=== PATIENT | female | born 1965 | race Caucasian/White ===

== ENCOUNTER 2023-11-11 05:45 | Emergency (ER) | payer OTHER, SELFPAY ==
[2023-11-11] VITALS (14 sets, daily range): BP systolic 104–150; BP diastolic 45–70; PULSE 72–102; RESP 11–19; TEMP 36.8–38.3; O2SAT 95–100; BMI 25.2
--- NOTE | 2023-11-11 | ECG_ITS ---
Test Reason : CHEST PAIN Blood Pressure : / mmHG Vent. Rate : 090 BPM Atrial Rate : 090 BPM P-R Int : 134 ms QRS Dur : 094 ms QT Int : 336 ms P-R-T Axes : 000 058 053 degrees QTc Int : 411 ms Normal sinus rhythm Normal ECG No previous ECGs available Referred By: Generic ED Physician Electronically Signed By:JENNY METCALF
--- NOTE | ~2023-11-11 | XR_ITS ---
EXAMINATION: XR CHEST CLINICAL INFORMATION: Chest pain COMPARISON: None available. TECHNIQUE: 4 views of the chest were obtained. Fluoroscopy was utilized. FINDINGS: No significant abnormality is noted involving the heart, lungs, mediastinum, bony thorax or soft tissues. XR/XR chest 2V IMPRESSION: Unremarkable chest examination. Electronically signed by: Lc Dsouza MD 11/11/2023 08:08 AM EDT
--- NOTE | ~2023-11-11 | CT_ITS ---
EXAMINATION: CT ABDOMEN AND PELVIS WITHOUT CONTRAST CLINICAL INFORMATION: Examination: Abdominal pain, diarrhea and vomiting. COMPARISON: None available. TECHNIQUE: Multidetector volumetric imaging was performed from the superior aspect of the liver through the pubic symphysis. Sagittal and coronal reformatted images were obtained on the technologist's workstation. This CT examination was performed using dose optimization techniques as appropriate, variously including the following: *Automated exposure control *Adjustment of mA and/or kV according to patient size (this includes techniques or standardized protocols for targeted exams where dose is matched to indication/reason for exam; i.e. extremities or head) *Use of iterative reconstruction technique DLP: 518 mGy-cm FINDINGS: LUNG BASES: The visualized lung bases are unremarkable. LIVER, GALLBLADDER, AND BILIARY TREE: The liver is normal in size, shape, and attenuation. No focal hepatic lesion or biliary ductal dilatation is present. The gallbladder is unremarkable with no evidence of radiopaque gallstones, gallbladder wall thickening, or obvious pericholecystic inflammatory changes. PANCREAS: Unremarkable. SPLEEN: Unremarkable. ADRENAL GLANDS: Unremarkable. KIDNEYS AND URETERS: The kidneys are normal in size, shape, and attenuation. No hydronephrosis, hydroureter, or calculi seen. No perinephric stranding. BLADDER: Unremarkable. GASTROINTESTINAL TRACT: There is scattered stool and gas seen throughout the colon without distention. The small bowel loops are normal caliber. Appendix is normal caliber. No free air or free fluid. ABDOMINAL WALL: Small umbilical hernia containing fat. LYMPH NODES: Normal. VASCULAR: Unremarkable. PELVIC VISCERA: The uterus is mildly prominent and retroverted. No adnexal mass or free fluid seen. OSSEOUS STRUCTURES: Unremarkable. CT/CT abdomen pelvis wo IV con IMPRESSION: No acute intraabdominal process seen. Mildly prominent retroverted uterus. Fleischner guidelines were followed. Electronically signed by: Lc Dsouza MD 11/11/2023 02:46 PM EDT
--- NOTE | 2023-11-11 06:35 | PC.NURSE ---
attempted x1 to establish a line and obtain labs, unsuccessful. pt states she is usually an ultrasound guided line.
--- NOTE | 2023-11-11 06:46 | ED.ABDPAIN ---
HPI - Abdominal Pain General Chief Complaint: Abdominal Pain Stated Complaint: vomiting and diarrhea Time Seen by Provider: 11/11/23 06:30 Source: patient, family and EMS Mode of arrival: EMS Limitations: no limitations History of Present Illness ED Provider: Zayra Pop APRN HPI narrative: 57 yo female with PMH MG on pyridostigmine followed by [facility] neurology (Liz Morelos), asthma, migraines, thyroid cancer with subsequent hypothyroidism, PCOS, exploratory laparotomy/L oophrectomy here with complaints of multiple episodes of vomiting/diarrhea since 10pm last evening with generalized abdominal pain, temp 99F. Of note, patient has had some intermittent generalized chest pain/back pain for several weeks. This may be at rest or with activity. No SOB, URI symptoms, fevers, leg swelling/leg pain with this. She did travel from [place] recently after visiting her father who was hospitalized for a UTI. Also was around a friend this week who had GI symptoms. Patient reports her primary concern in coming in today is generalized weakness. Related Data Home Medications ?Medication ?Instructions ?Recorded ?Confirmed cromolyn 5.2 mg/spray (4 %) nasal 1 spray intranasal QID 11/11/23 spray levothyroxine 100 mcg tablet 100 mcg PO DAILY@0600 11/11/23 liothyronine 5 mcg tablet 5 mcg PO BID 11/11/23 mometasone-formoterol HFA 200 1 puff inhalation BID 11/11/23 mcg-5 mcg/actuation aerosol inhaler (Dulera) prednisone 1 mg tablet 3 mg PO DAILY 11/11/23 pyridostigmine bromide 60 mg tablet 30 mg PO BEDTIME 11/11/23 pyridostigmine bromide 60 mg tablet 60 mg PO TID 11/11/23 rimegepant 75 mg disintegrating 75 mg PO DAILY PRN Migraine 11/11/23 tablet (Nurtec ODT) Headache triamcinolone acetonide 55 mcg 2 spray intranasal DAILY 11/11/23 nasal spray aerosol Allergies Allergy/AdvReac Type Severity Reaction Status Date / Time aspirin [ASA] Allergy Unknown Verified 11/11/23 06:05 Review of Systems Review of Systems Yes all other systems are reviewed and are negative Constitutional: Reports no additional constitutional complaints, Denies body ache(s), Denies chills, Reports fever(s), Denies headache(s) and Reports weakness Eyes: Reports no additional eye complaints and Denies change in vision Reports system reviewed and no additional complaints, except as documented, Denies dizziness, Denies headache(s), Denies nasal congestion, Denies nasal discharge and Denies neck pain Cardiovascular: Reports no additional cardiovascular complaints, Reports chest pain, Denies leg edema and Denies dyspnea Respiratory: Reports no additional respiratory complaints, Denies cough and Denies dyspnea Gastrointestinal: Reports no additional gastrointestinal complaints, Reports abdominal pain, Reports diarrhea, Reports nausea and Reports vomiting Genitourinary: Reports no additional female genitourinary complaints and Denies urinary incontinence Musculoskeletal: Reports no additional musculoskeletal complaints, Reports back pain, Denies arthralgias, Denies joint swelling, Denies neck pain, Denies numbness and Denies tingling Skin/Breast: Reports system reviewed and no additional complaints, except as docu and Denies rash Reports system reviewed and no additional complaints, except as documented, Denies Abnormal speech present, Denies dizziness, Denies headache(s), Denies numbness, Denies tingling and Reports weakness PMFSH Past Medical History Attestation statement: The following information was validated with the patient. Source: old records reviewed and nursing notes reviewed Social History Social History Smoked in Last 30 Days: No Use of substances other than those prescribed or required for medical reasons: No Advance Directives: No Advance Directives Information Provided: No Physical Exam ED Vital Signs: Vital Signs - 24 hr 11/11/23 06:02 11/11/23 06:14 11/11/23 07:26 Temperature Pulse Rate 97 97 83 Respiratory Rate 15 15 11 L Blood Pressure 119/70 119/70 133/67 Pulse Oximetry 97 97 98 Oxygen Delivery Method Room Air Room Air Room Air 11/11/23 07:35 11/11/23 12:00 11/11/23 13:28 Temperature 98.5 F 101.0 F H 98.9 F Pulse Rate 92 Respiratory Rate 15 Blood Pressure 122/56 L Pulse Oximetry 99 Oxygen Delivery Method Room Air 11/11/23 13:46 11/11/23 14:10 11/11/23 14:22 Temperature 98.9 F 99.1 F Pulse Rate 90 102 H Respiratory Rate 13 14 Blood Pressure 104/64 Pulse Oximetry 97 Oxygen Delivery Method Room Air Room Air 11/11/23 15:26 Temperature Pulse Rate 93 Respiratory Rate 19 Blood Pressure 109/45 L Pulse Oximetry 96 Oxygen Delivery Method Room Air BMI result Body Mass Index 25.2 Const General: cooperative, healthy appearing, comfortable and no acute distress Orientation/consciousness: patient oriented x3 Limitations: no limitations [facility] Head: Yes normal to inspection Ears: hearing grossly normal bilaterally General nose exam: Normal external nose present Face and sinus: Yes normal facial exam Mouth: Normal oral and palatal mucosa present Throat: Yes posterior oropharynx normal Eyes General: appearance normal, both eyes and all related structures Pupils: Equal, round and reactive pupils present Neck Neck: Yes normal visual inspection Chest Chest palpation & inspection: normal inspection of the chest Resp Effort & Inspection: normal respiratory effort Auscultation: clear to auscultation bilaterally Cardio Rate: regular rate Rhythm: regular rhythm Peripheral pulses: Peripheral pulses 2+ throughout GI Inspection: Yes normal to inspection Palpation (GI): Soft to palpation and Tenderness to palpation present (GI) (diffusely tender-no rebound or guarding) Auscultation: normal bowel sounds Back/Spine/Pelvis Thoracic/Lumbar Spine: thoracic and lumbar spine normal to inspection Skin General skin exam: no rashes or lesions noted Neuro General: patient oriented x3, moves all extremities, no focal motor deficits and normal sensation to monofilament Cranial nerves: Yes Equal, round and reactive pupils present Cognition (Neuro): normal cognition Speech: No Abnormal speech present Extrem General: Yes normal to inspection, Yes no pedal edema and Yes no calf tenderness Course Course Course Narrative: 0650-Patient in hallway location. I asked for her to be moved to a room with cardiac/resp monitoring 0715-Nursing informs me they have been unable to obtain IV access or labs despite multiple attempts and US attempts. I went to the bedside and brought Dr Haynes. Patient's EJ appears flat. We were able to get a peripheral line in her left hand however she appears very dehydrated. Nursing will start vigorous IV fluid. They are moving her to a room now with cardiac monitoring ability. No temp documented so I asked for this. After hydration we will attempt labs being drawn 1015-After 1 L NS we did have nursing attempt to obtain labs but they were unsuccessful. She does have a peripheral IV which is still working. We were able to use the US to get labs but the additional PIV was unsucessful. Reevaluation(s) Reevaluation #1: CT scan abdomen and pelvis is unremarkable. Patient has been unable to provide stool studies in the emergency room. She has been voiding. She is drinking pina erasmo and has not had any vomiting in several hours and has been able to take some oral medication. She did have a temperature of 101 degrees. I do believe that she likely has a viral gastroenteritis. If she is able to provide stool I do think would be beneficial to send stool studies on her. She is complaining of feeling generally weak. She has clear lung sounds. She is oxygenating well. She is speaking full sentences. I have low suspicion for myasthenia gravis flare. We will do a VC/NIP with RT. This case was discussed with Dr Hyanes who concurs. Patient may need CM/STR if she cannot go home Reevaluation #2: 6725- NIF 60 VC 3.21 MG crisis is not likely Reviewed all the findings with the patient and her . At this time the patient is concerned that she is weak and feels her cannot care for her at home. I explained at this time she is not meeting inpatient criteria. I will have nursing reconcile her medications so she can have these ordered. I will also place PT and CM orders for the morning. Placed in physician observation pending disposition. Reevaluation #3: 1630-Sign out to Rubia HOLMAN pending above Medical Decision Making Medical Decision Making MDM Narrative: 57 yo female with PMH MG on pyridostigmine followed by [facility] neurology (Liz Morelos), asthma, migraines, thyroid cancer with subsequent hypothyroidism, PCOS, exploratory laparotomy/L oophrectomy here with complaints of multiple episodes of vomiting/diarrhea since 10pm last evening with generalized abdominal pain, temp 99F. Of note, patient has had some intermittent generalized chest pain/back pain for several weeks. This may be at rest or with activity. No SOB, URI symptoms, fevers, leg swelling/leg pain with this. She did travel from [place] recently after visiting her father who was hospitalized for a UTI. Also was around a friend this week who had GI symptoms. Patient reports her primary concern in coming in today is generalized weakness. Diffuse tenderness to palpation of the abdomen with no focal tenderness. +BS. LS CTA. Speaking full sentences. VSS. Moving all extremities, tone normal. Will need labs, stool studies, UA, viral testing, CT A/P Will give NS, antiemetic, analgesia Will have nursing place on cardiac monitoring Differential Diagnosis Differential Diagnoses: The differential diagnosis associated with the presentation includes Viral syndrome, gastroenteritis -appendicitis, diverticulitis, ischemic colitis MG flare Admission/Observation Consideration of admission/observation: Escalation of care including admission/observation considered Lab Data MDM Lab Attestation statement: I reviewed the patient's lab results. 11/11/23 10:37 11/11/23 10:37 Labs: Lab Results 11/11/23 11/11/23 Range/Units 10:15 10:37 WBC 6.8 (4.8-10.8) X10*3/uL RBC 4.76 (4.20-5.50) X10*6/uL Hgb 15.5 (12.0-16.0) g/dl Hct 46.1 (37.0-47.0) % MCV 96.8 (80.0-98.0) fL MCH 32.6 (27.0-33.0) pg MCHC 33.6 (31.0-35.0) g/dl RDW 13.0 (11.0-16.0) % Plt Count 212 (160-400) X10*3/uL MPV 9.0 L (9.4-12.3) fL Immature Gran % (Auto) 0.4 (0.0-0.4) % Neut % (Auto) 84.6 H (45-73) % Lymph % (Auto) 5.6 L (20-40) % Pershing % (Auto) 7.8 (2-11) % Eos % (Auto) 1.2 (0-4) % Baso % (Auto) 0.4 (0-2) % Lymph # (Auto) 0.4 L (1.2-4.9) X10*3/uL Pershing # (Auto) 0.5 (0.1-1.2) X10*3/uL Eos # (Auto) 0.1 (0.0-0.4) X10*3/uL Baso # (Auto) 0.0 (0.0-0.2) X10*3/uL Abs Immat Gran (auto) 0.03 (0.00-0.03) X10*3/uL Absolute Neuts (auto) 5.7 (2.0-8.3) x10*3/uL Absolute Nucleated RBC 0.000 (0.0-0.012) X10*3/uL Nucleated RBC % (auto) 0.0 (0.0-0.2) /100WBC Sodium 142 (135-145) mmol/L Potassium 4.0 (3.3-5.1) mmol/L Chloride 111 H (96-108) mmol/L Carbon Dioxide 22 (22-29) mmol/L Anion Gap 13 (12-20) BUN 19 H (9-16) mg/dL Creatinine 0.88 (0.5-1.4) mg/dL Estim Creat Clear Calc 64.4 Estimated GFR > 60 Random Glucose 100 (60-115) mg/dL Lactic Acid 1.1 (0.5-2.0) mmol/L Calcium 8.6 (8.4-10.2) mg/dL Total Bilirubin 0.6 (0.0-1.0) mg/dL Direct Bilirubin 0.2 (0.0-0.5) mg/dL AST 18 (5-31) U/L ALT 22 (0-31) U/L Alkaline Phosphatase 57 (39-117) U/L Troponin I High Sens 5.7 (<3.5-17.0) ng/L Total Protein 5.9 L (6.5-8.0) g/dL Albumin 3.6 (3.5-5.0) g/dL Lipase 9 (8-78) U/L Influenza Type A (PCR) NEGATIVE (Negative) Influenza Type B (PCR) NEGATIVE (Negative) RSV RNA Qual (PCR) NEGATIVE (Negative) SARS-CoV-2 RNA (RT-PCR) NEGATIVE (Negative) Independent Interpretation I performed an independent interpretation of an: EKG, Plain X-Ray and CT Scan Interpretation: I independently reviewed the CXR/CT A/P and agree with the rad report I independently viewed the EKG which shows normal sinus rhythm with a rate of 90, normal NH, normal QRS normal QT Radiology Impression Discussion of test interpretation with radiology: I have reviewed the radiologist's reading. Radiologist Impression: [address] [address] XRay Report Signed Patient: Alycia Velasco MR#: [id number] : 1965 Acct:[id number] Age/Sex: 58 / F ADM Date: 11/11/23 Loc: HO.ED Attending Dr: Ordering Physician: Zayra Florence NP Date of Service: 11/11/23 Procedure(s): XR chest 2V Accession Number(s): [id number] cc: Physician,Unknown ; Zayra Florence [employer]UTDOWN PLANNER~ EXAMINATION: XR CHEST CLINICAL INFORMATION: Chest pain COMPARISON: None available. TECHNIQUE: 4 views of the chest were obtained. Fluoroscopy was utilized. FINDINGS: No significant abnormality is noted involving the heart, lungs, mediastinum, bony thorax or soft tissues. XR/XR chest 2V IMPRESSION: Unremarkable chest examination. [place] [address] CT Scan Report Signed Patient: Alycia Velasco MR#: [id number] : 1965 Acct:[id number] Age/Sex: 58 / F ADM Date: 11/11/23 Loc: HO.ED Attending Dr: Ordering Physician: Zayra Florence NP Date of Service: 11/11/23 Procedure(s): CT abdomen pelvis wo IV con Accession Number(s): [id number] cc: Physician,Unknown ; Zayra Florence NP~ EXAMINATION: CT ABDOMEN AND PELVIS WITHOUT CONTRAST CLINICAL INFORMATION: Examination: Abdominal pain, diarrhea and vomiting. COMPARISON: None available. TECHNIQUE: Multidetector volumetric imaging was performed from the superior aspect of the liver through the pubic symphysis. Sagittal and coronal reformatted images were obtained on the technologist's workstation. This CT examination was performed using dose optimization techniques as appropriate, variously including the following: *Automated exposure control *Adjustment of mA and/or kV according to patient size (this includes techniques or standardized protocols for targeted exams where dose is matched to indication/reason for exam; i.e. extremities or head) *Use of iterative reconstruction technique DLP: 518 mGy-cm FINDINGS: LUNG BASES: The visualized lung bases are unremarkable. LIVER, GALLBLADDER, AND BILIARY TREE: The liver is normal in size, shape, and attenuation. No focal hepatic lesion or biliary ductal dilatation is present. The gallbladder is unremarkable with no evidence of radiopaque gallstones, gallbladder wall thickening, or obvious pericholecystic inflammatory changes. PANCREAS: Unremarkable. SPLEEN: Unremarkable. ADRENAL GLANDS: Unremarkable. KIDNEYS AND URETERS: The kidneys are normal in size, shape, and attenuation. No hydronephrosis, hydroureter, or calculi seen. No perinephric stranding. BLADDER: Unremarkable. GASTROINTESTINAL TRACT: There is scattered stool and gas seen throughout the colon without distention. The small bowel loops are normal caliber. Appendix is normal caliber. No free air or free fluid. ABDOMINAL WALL: Small umbilical hernia containing fat. LYMPH NODES: Normal. VASCULAR: Unremarkable. PELVIC VISCERA: The uterus is mildly prominent and retroverted. No adnexal mass or free fluid seen. OSSEOUS STRUCTURES: Unremarkable. CT/CT abdomen pelvis wo IV con IMPRESSION: No acute intraabdominal process seen. Mildly prominent retroverted uterus. Fleischner guidelines were followed. Electronically signed by: Lc Dsouza MD 11/11/2023 02:46 PM EDT Independent Historian Clinical information obtained from an independent historian. History obtained from or confirmed by: Spouse and EMS Medications Administered Generic Name Dose Route Start Last Admin Trade Name Freq PRN Reason Stop Dose Admin Sodium Chloride 1,000 mls @ 100 mls/hr 11/11/23 12:30 11/11/23 13:48 Ns IVCONT Infused .Q10H SALINAS Infusion Discontinued Medications Generic Name Dose Route Start Last Admin Trade Name Freq PRN Reason Stop Dose Admin Acetaminophen 975 mg 11/11/23 12:14 11/11/23 12:27 Acetaminophen 325 Mg Tablet PO 11/11/23 12:15 975 mg ONCE ONE Administration Sodium Chloride 1,000 mls @ 999 mls/hr 11/11/23 06:41 11/11/23 10:53 Ns IV 11/11/23 07:41 Infused .Q1H1M STA Infusion Sodium Chloride 1,000 mls @ 999 mls/hr 11/11/23 10:34 11/11/23 12:16 Ns IV 11/11/23 11:34 Infused .Q1H1M STA Infusion Ketorolac Tromethamine 15 mg 11/11/23 06:41 11/11/23 07:24 Ketorolac Tromethamine 15 Mg/Ml Vial IVPUSH 11/11/23 06:42 15 mg ONCE ONE Administration Levothyroxine Sodium 100 mcg 11/11/23 13:35 11/11/23 13:47 Levothyroxine Sodium 100 Mcg Tablet PO 11/11/23 13:36 100 mcg ONCE ONE Administration Ondansetron HCl 4 mg 11/11/23 06:41 11/11/23 07:25 Ondansetron Hcl 4 Mg/2 Ml Vial IVPUSH 11/11/23 06:42 4 mg ONCE ONE Administration Ondansetron HCl 4 mg 11/11/23 10:34 11/11/23 11:04 Ondansetron Hcl 4 Mg/2 Ml Vial IVPUSH 11/11/23 10:35 4 mg ONCE ONE Administration Critical Care Time Critical Care Time Critical Care Time: Yes Total Critical Care Time: 45 Attestation: Multiple re-evaluations of patient's symptoms and vitals, discussion with her and her partner in regards to goals of care Discharge Plan Discharge Clinical Impression: Gastroenteritis Patient Disposition: Still a Patient Instructions: Gastroenteritis (ED) Prescriptions: No Action cromolyn 5.2 mg/spray (4 %) spray,non-aerosol 1 spray intranasal QID liothyronine 5 mcg tablet 5 mcg PO BID levothyroxine 100 mcg tablet 100 mcg PO DAILY@0600 prednisone 1 mg tablet 3 mg PO DAILY pyridostigmine bromide 60 mg tablet 60 mg PO TID pyridostigmine bromide 60 mg tablet 30 mg PO BEDTIME triamcinolone acetonide 55 mcg aerosol,spray 2 spray intranasal DAILY Dulera 200-5 mcg/actuation HFA aerosol inhaler 1 puff inhalation BID Nurtec ODT 75 mg tablet,disintegrating 75 mg PO DAILY PRN (Reason: Migraine Headache) Print Language: Emirati
[2023-11-11] MEDS: Ketorolac Tromethamine 15 MG/ML VIAL IVPUSH (07:24)
[2023-11-11] MEDS: ondansetron HCL 4 MG/2 ML VIAL IVPUSH ×3 (07:25→18:38)
[2023-11-11] MEDS: 0.9 % Sodium Chloride 1,000 ML 999 ML IV ×2 (07:25→10:54)
--- NOTE | 2023-11-11 10:18 | MHC.EDTECH ---
This pct upon talking to the patient states she has been laying in urine all night, patient explained she was sleeping and the tech who was responsible for her left her in urine all night according the patient, this pct did go in and change the patient which was soaked in urine and feces,patient was cleaned and changed along with bed linen
[2023-11-11 10:49] LABS: MANUAL DIFF FLAG NO
[2023-11-11 10:50] LABS: Basophils Percent Auto 0.4 % (0-2); Eosinophils Absolute Auto 0.1 X10*3/uL (0.0-0.4); Eosinophils Percent Auto 1.2 % (0-4); Hematocrit 46.1 % (37.0-47.0); Hemoglobin 15.5 g/dl (12.0-16.0); Imm Gran Abs Auto 0.03 X10*3/uL (0.00-0.03); Imm Gran Pct Auto 0.4 % (0.0-0.4); Lymphocytes Absolute Auto 0.4 X10*3/uL (1.2-4.9); Lymphocytes Percent Auto 5.6 % (20-40); Mean Corpuscular HGB Conc 33.6 g/dl (31.0-35.0); Mean Corpuscular Hemoglobin 32.6 pg (27.0-33.0); Mean Corpuscular Volume 96.8 fL (80.0-98.0); Monocytes Absolute Auto 0.5 X10*3/uL (0.1-1.2); Monocytes Percent Auto 7.8 % (2-11); Neutrophils Absolute Auto 5.7 x10*3/uL (2.0-8.3); Neutrophils Percent Auto 84.6 % (45-73); Platelet Count 212 X10*3/uL (160-400); Red Blood Count 4.76 X10*6/uL (4.20-5.50); White Blood Count 6.8 X10*3/uL (4.8-10.8)
--- NOTE | 2023-11-11 10:55 | PC.NURSE ---
US guided IV placement completed by Dr. Haynes. Blood labs drawn without issue. J-loop attached and noted no blood return and difficultly and pain with flushing. Per Dr. Haynes, IV can be removed.
[2023-11-11 10:57] LABS: Influenza A PCR NEGATIVE (Negative); Influenza B PCR NEGATIVE (Negative); Resp Syncy Virus RNA Qual PCR NEGATIVE (Negative); SARS COV2 PCR INHOUSE NEGATIVE (Negative)
[2023-11-11 11:01] LABS: Lactic Acid 1.1 mmol/L (0.5-2.0)
[2023-11-11 11:04] LABS: Alanine Aminotransferase 22 U/L (0-31); Albumin Level 3.6 g/dL (3.5-5.0); Alkaline Phosphatase 57 U/L (39-117); Anion Gap 13 (12-20); Aspartate Amino Transferase 18 U/L (5-31); Bilirubin Direct 0.2 mg/dL (0.0-0.5); Bilirubin Total 0.6 mg/dL (0.0-1.0); Blood Urea Nitrogen 19 mg/dL (9-16); Calcium 8.6 mg/dL (8.4-10.2); Carbon Dioxide 22 mmol/L (22-29); Chloride 111 mmol/L (96-108); Creatinine Clr Calc Pharmacy 64.4; Estimated Glomerular Filt Rate > 60; Glucose Random 100 mg/dL (60-115); Lipase 9 U/L (8-78); Sodium 142 mmol/L (135-145); Total Protein 5.9 g/dL (6.5-8.0)
[2023-11-11 11:12] LABS: Troponin-I High Sensitivity 5.7 ng/L (<3.5-17.0)
--- NOTE | 2023-11-11 12:12 | MHC.EDTECH ---
This tech check pt vital signs, pt febrile, RN aware.
[2023-11-11] MEDS: Acetaminophen 325 MG TABLET 975 MG PO ×2 (12:27→21:15)
[2023-11-11] MEDS: 0.9 % Sodium Chloride 1,000 ML 100 ML IVCONT (12:33)
[2023-11-11] MEDS: Levothyroxine Sodium 100 MCG TABLET PO (13:47)
--- NOTE | 2023-11-11 15:11 | PC.RT ---
FVC/NIF completed bedside. NIF was -60 and FVC was 3.21. Best out of 3.
--- NOTE | 2023-11-11 16:10 | PC.NURSE ---
Spoke with Pharmacy staff. Pt will be added to list for med rec for home medications and process as time permits.
--- NOTE | 2023-11-11 16:49 | PHA.MEDREC ---
Addendum entered by Jessica Corrales RPh 11/11/23 17:36: [facility] reviewed Original Note: Pharmacy Consult ? Medication Reconciliation Pharmacy has completed the medication reconciliation. takes liothyronine 2.5 mg QID, nurtec every other day, dulera 1 puff in Am and 2 puff in PM.
[2023-11-11 17:10] LABS: Appearance Urine Clear; Color Urine Dark Yellow; Glucose Urine UA Negative (Negative); Leukocyte Esterase Urine Negative (Negative); Nitrite Urine Negative (Negative); Specific Gravity - Urine 1.025 (1.005-1.025); Urine Blood Negative (Negative); Urine Ketones 15 mg/dL (Negative); Urine Protein Negative (Neg-Trace)
[2023-11-11 17:13] LABS: UPreg QC Valid YES; Urine Pregnancy NEGATIVE (NEGATIVE)
[2023-11-11 19:32] LABS: CDiff Gene PCR NEGATIVE (Negative)
[2023-11-11] MEDS: Cholecalciferol (Vitamin D3) 25 MCG TABLET 50 MCG PO (19:54)
--- NOTE | 2023-11-11 20:52 | PC.NURSE ---
report received from Cara BRADFORD pt from main ED
--- NOTE | 2023-11-11 20:58 | PC.NURSE ---
pt from main ED, pt upset that she was moved to overflow, the room she was in, was good, and she is c/o of the light, makes her head hurt. Pt wants the lights off, explained, the lights could not go off. the light over her bed is off. Pt c/o of pain and nausea now, and is requesting something
[2023-11-11] MEDS: Metoclopramide HCl 10 MG TABLET PO (23:38)
[2023-11-11] MEDS: Simethicone 80 MG TAB.CHEW 160 MG PO (23:45)
--- NOTE | 2023-11-11 23:51 | PC.NURSE ---
pt had asked for something for nausea, pt had reglan ordered, when I got it, from the main ED, pt refused, because it may have lactose in it, and she is allergic to it. Pt asked for, and received gasex. pt given gingerale to drink, and some ice.
--- NOTE | 2023-11-12 01:44 | PC.NURSE ---
resting quietly, with eyes closed, resp with ease, no s/s of acute distress
--- NOTE | 2023-11-12 01:58 | MHC.EDTECH ---
Patient up to bedside commode ,had a medium soft bowel movement ,then back to bed .
[2023-11-12 06:09] VITALS: BP 116/55; PULSE 74; RESP 16; TEMP 36.6; O2SAT 97
[2023-11-12] MEDS: Levothyroxine Sodium 100 MCG TABLET PO (06:18)
[2023-11-12] MEDS: Acetaminophen 325 MG TABLET 975 MG PO ×2 (06:19→22:29)
--- NOTE | 2023-11-12 06:27 | PC.NURSE ---
pt requested tylenol for headache, medcated as requested, will cont plan of care
[2023-11-12] MEDS: 0.9 % Sodium Chloride 1,000 ML 100 ML IVCONT ×2 (08:20→18:09)
[2023-11-12 09:22] LABS: Adenovirus F 40/41 Not Detected (Not Detect.); Astrovirus Not Detected (Not Detect.); Campylobacter Not Detected (Not Detect.); Cryptosporidium Not Detected (Not Detect.); Cyclospora cayetanensis Not Detected (Not Detect.); E. coli EAEC Not Detected (Not Detect.); E. coli EPEC Not Detected (Not Detect.); E. coli ETEC Not Detected (Not Detect.); E. coli STEC Not Detected (Not Detect.); Entamoeba histolytica Not Detected (Not Detect.); Giardia lamblia Not Detected (Not Detect.); Plesiomonas shigelloides Not Detected (Not Detect.); Rotavirus A Not Detected (Not Detect.); Salmonella Not Detected (Not Detect.); Sapovirus Not Detected (Not Detect.); Shigella sp./EIEC Not Detected (Not Detect.); Vibrio Not Detected (Not Detect.); Vibrio Cholerae Not Detected (Not Detect.); Yersinia enterocolitica Not Detected (Not Detect.)
[2023-11-12] MEDS: pyRIDostigmine bromide 60 MG TABLET 30 MG PO (09:40)
[2023-11-12] MEDS: Cholecalciferol (Vitamin D3) 25 MCG TABLET 50 MCG PO (09:40)
[2023-11-12] MEDS: Simethicone 80 MG TAB.CHEW 160 MG PO (12:20)
[2023-11-12 14:00] VITALS: BP 128/81; PULSE 70; RESP 16; TEMP 37.1; O2SAT 99
--- NOTE | 2023-11-12 15:57 | MHC.CM.ED ---
Received case management consult overnight. Patient came to the ER d/t nausea/vomiting. Physical therapy eval completed d/t weakness. Short term rehab is recommended. Met with patient in regards to discharge planning. Patient lives with her sig other, Adriano, ambulates independently and had no services prior to coming to the hospital. PCP verified as Dr Selvin Castillo. HCP completed, signed and witnessed. Referral broadcasted in [facility]. [facility], [facility] and [facility] are able to offer a bed. [facility] is 1st choice. Facility is in the process of obtaining insurance auth. Continue to monitor for d/c needs.
[2023-11-12] MEDS: LIOTHYRONINE 5 MCG 2.5 EACH PO ×2 (17:00→20:48)
--- NOTE | 2023-11-12 17:05 | PC.NURSE ---
Med sent down from pharmacy, placed in patient specific bin
--- NOTE | 2023-11-12 17:28 | PC.NURSE ---
While eating dinner, pt called over RN and reports that she is having some trouble swallowing, reports she feels weak from the past few days of N/V and thinks it is affecting her swallowing. Further food held, provider notified of situation
[2023-11-12 20:00] VITALS: BP 120/67; PULSE 76; RESP 18; TEMP 36.7; O2SAT 99
--- NOTE | 2023-11-12 20:28 | PC.NURSE ---
pt feeling well tonight, told RN about her difficulty swallowing earlier. feels stronger right now after waking up from a nap, attempted applesauce. pt took a few spoonfuls with no problems, then started to have trouble, feels like it is burning going down, painful to swallow. no trouble swallowing water. pt wants to take her 2100 medication, says it is small and she can take it with water.
[2023-11-12] MEDS: Calcium Carbonate 750 MG TAB.CHEW 1500 MG PO (20:53)
[2023-11-12] MEDS: ondansetron HCL 4 MG/2 ML VIAL IVPUSH (23:23)
--- NOTE | 2023-11-12 23:27 | PC.NURSE ---
pt medicated per MAR for nausea
[2023-11-13] MEDS: 0.9 % Sodium Chloride 1,000 ML 100 ML IVCONT (02:34)
[2023-11-13 06:00] VITALS: BP 134/58; PULSE 71; RESP 18; TEMP 36.3; O2SAT 98
[2023-11-13] MEDS: Acetaminophen 325 MG TABLET 975 MG PO (06:45)
[2023-11-13] MEDS: Levothyroxine Sodium 100 MCG TABLET PO (07:37)
[2023-11-13] MEDS: predniSONE 1 MG TABLET 3 MG PO (09:49)
[2023-11-13] MEDS: pyRIDostigmine bromide 60 MG TABLET PO (09:49)
[2023-11-13] MEDS: LIOTHYRONINE 5 MCG 2.5 EACH PO (09:50)
--- NOTE | 2023-11-13 09:57 | PC.NURSE ---
pt a&ox3, ivf running per order, rr equal/non labored, pt medicated per order, vitals have been stable, call douglas within reach, will continue to monitor
--- NOTE | 2023-11-13 10:08 | MHC.CM.ED ---
Patient remains in ER overflow. Insurance auth has been obtained by [facility]. Patient can leave at 11am. Leah AYERS booked. Med nec with chart. Patient, Bisi BRADFORD and Mónica HOLMAN aware. Continue to monitor for d/c needs.
--- NOTE | 2023-11-13 10:48 | PC.NURSE ---
pt requesting help setting up portal, pt registration was notified and have come over to assist patient
--- NOTE | 2023-11-13 10:48 | PC.NURSE ---
PT wanted to be re evaled by physical therapy before 11am discharge to nursing facility as she would rather go home than to the facility, supportive employment case manager was notified- pt unable to do a re-eval, this nurse has the tech walking the patient to see if patient can go home instead.
--- NOTE | 2023-11-13 11:10 | PC.NURSE ---
report called to [facility]/megan given report.
[2023-11-13 11:11] VITALS: BP 134/56; PULSE 72; RESP 18; TEMP 36.7; O2SAT 98
[2023-11-14 10:40] LABS: Norovirus Stool PCR DETECTED
--- NOTE | 2023-11-14 19:00 | MHC.CM.ED ---
CM received request from Dina HOLMAN to call [facility], as patient has tested positive for stool Norovirus PCR. CM called [facility] and spoke with Henrry Fuentes. He tells CM that patient demanded discharge today and left about 1 hour ago. He is aware of the positive Norovirus. Pt was discharged home with services from [facility] ([phone]). CM attempted to call agency but agency is closed. Dina HOLMAN aware of above. No need to call agency or patient per provider.
== END 2023-11-13 11:13 ==
PROVIDERS: Emergency Medicine; Nurse Practitioner Family; Emergency Provider Emergency Medicine; PCP Family Medicine
DX: K52.9 Noninfective gastroenteritis and colitis, unspecified (principal); R10.30 Lower abdominal pain, unspecified; N39.0 Urinary tract infection, site not specified; R26.2 Difficulty in walking, not elsewhere classified; R07.89 Other chest pain; M54.50 Low back pain, unspecified; R11.2 Nausea with vomiting, unspecified; Z79.899 Other long term (current) drug therapy; Z03.818 Encounter for observation for suspected exposure to other biological agents ruled out
CPT/HCPCS: 0241U; 36415; 71046; 74176; 80048; 80076; 81003; 81025; 83605; 83690; 84484; 85025; 87040; 87493; 87507; 93005; 96361; 96374; 96376; 97162; 99285; J1885; J2405